=== PATIENT | female | born 1980 | race Caucasian/White ===

== ENCOUNTER 2018-03-22 15:17 | Inpatient (IN) | payer SELFPAY ==
[2018-03-22] MEDS ORDERED: Sodium Chloride 0.9% 2.5 ML Syringe FLUSH PRN (15:39)
[2018-03-22] MEDS ORDERED: Lidocaine 1% 50 ML MDV INJECT PRN (15:39)
[2018-03-22] MEDS ORDERED: Misoprostol 200 MCG Tab PO PRN (15:39)
[2018-03-22] MEDS ORDERED: Butorphanol 1 MG/ML SDV IVPUSH PRN (15:39)
[2018-03-22] MEDS ORDERED: Water For Irrigation,Sterile 1,000 ML Container IRR PRN (15:39)
[2018-03-22] MEDS ORDERED: Nalbuphine 10 MG/1 ML Vial IVPUSH PRN (15:39)
[2018-03-22] MEDS ORDERED: Tranexamic Acid 1,000 MG in Sodium Chloride 0.9% 100 ML IV PRN (15:39)
[2018-03-22] MEDS ORDERED: Sodium Chloride 0.9% 10 ML Syringe FLUSH PRN (15:39)
[2018-03-22] MEDS ORDERED: Carboprost Tromethamine 250 MCG/1 ML Amp IM PRN (15:39)
[2018-03-22] MEDS ORDERED: Methylergonovine 0.2 MG/1 ML Amp IM PRN (15:39)
[2018-03-22] MEDS ORDERED: Lactated Ringers 1,000 ML IV SCH (15:45)
[2018-03-22] MEDS ORDERED: Oxytocin/0.9 % Sodium Chloride 30 UNIT/500 ML BAG IV SCH (15:45)
--- NOTE | 2018-03-22 15:57 | PCM.LDHP ---
L&D History of Present Illness - General Date of Service: 03/22/18 Admit Problem/Dx: Patient Status Order with Admit Dx/Problem 03/22/18 15:39 Patient Status [ADT] Routine Admission Diagnosis/Problem Admission Diagnosis/Problem Source of Information: Patient History Limitations: Reports: No Limitations - History of Present Illness Improves with: Reports: None Worsens with: Reports: None Associated Symptoms: Reports: N - Related Data Allergies/Adverse Reactions: Allergies Allergy/AdvReac Type Severity Reaction Status Date / Time No Known Allergies Allergy Verified 08/31/14 17:14 Past Medical History HEENT History: Reports: Impaired Vision CLINICIAN ONCOLOGY History: Reports: - Past Surgical History HEENT Surgical History: Reports: Oral Surgery H&P Review of Systems - Review of Systems: Review Of Systems: See Below General: Reports: No Symptoms HEENT: Reports: No Symptoms Pulmonary: Reports: No Symptoms Cardiovascular: Reports: No Symptoms Gastrointestinal: Reports: No Symptoms Genitourinary: Reports: No Symptoms Musculoskeletal: Reports: No Symptoms Skin: Reports: No Symptoms Psychiatric: Reports: No Symptoms Neurological: Reports: No Symptoms Hematologic/Lymphatic: Reports: No Symptoms Immunologic: Reports: No Symptoms L&D Exam - Exam Exam: See Below - Vital Signs Weight: 90.718 kg - OB Specific Fundal Height In cm: 38 Contraction Intensity: Moderate to Strong Movement: Active Heart Tones: Present Presentation: Vertex - Hernandez Score Hernandez Score Cervix Position: Anterior Hernandez Score Consistency: Soft Hernandez Score Effacement: >80% Hernandez Score Dilation: > 5 cm Hernandez Score Infant's Station: -1 ,0 Hernandez Score Total: 12 - Exam General: Alert, Oriented HEENT: PERRLA, Conjunctiva Clear, EACs Clear, EOMI, Hearing Intact, Mucosa Moist & [place], Nares Patent, Normal Nasal Septum, Posterior Pharynx Clear, TMs Clear Neck: Supple, Trachea Midline Lungs: Clear to Auscultation, Normal Respiratory Effort Cardiovascular: Regular Rate, Regular Rhythm GI/Abdominal Exam: Normal Bowel Sounds, Soft, Non-Tender, No Organomegaly, No Distention, No Abnormal Bruit, No Mass, Pelvis Stable Rectal Exam: Normal Exam, Normal Rectal Tone Genitourinary: Normal external exam, Normal bimanual exam, Normal speculum exam Back Exam: Normal Inspection, Full Range of Motion Extremities: Normal Inspection, Normal Range of Motion, Non-Tender, No Pedal Edema, Normal Capillary Refill Skin: Warm, Dry, Intact Neurological: Cranial Nerves Intact, Reflexes Equal Bilateral Psychiatric: Alert, Normal Affect, Normal Mood Problem List Initiated/Reviewed/Updated: Yes Orders Last 24hrs: Active Orders 24 hr Category Date Time Status Patient Status [ADT] Routine ADT 03/22/18 15:39 Active Heart Tones [RC] CONTINUOUS Care 03/22/18 15:39 Active Non Stress Test [RC] PER UNIT ROUTINE Care 03/22/18 15:39 Active May Shower [RC] ASDIRECTED Care 03/22/18 15:39 Active Notify Provider [RC] PRN Care 03/22/18 15:39 Active Up ad Connie [RC] ASDIRECTED Care 03/22/18 15:39 Active Vaginal Exam [RC] PRN Care 03/22/18 15:39 Active Vital Signs [RC] PER UNIT ROUTINE Care 03/22/18 15:39 Active CBC W/O DIFF,HEMOGRAM [HEME] Routine Lab 03/22/18 15:39 Ordered TYPE AND SCREEN [BBK] Routine Lab 03/22/18 15:39 Ordered Butorphanol [Stadol] Med 03/22/18 15:39 Active 1 mg IVPUSH Q1H PRN Carboprost Tromethamine [Hemabate DS] Med 03/22/18 15:39 Active 250 mcg IM ASDIRECTED PRN Lactated Ringers [Ringers, Lactated] 1,000 ml Med 03/22/18 15:45 Active IV ASDIRECTED Lidocaine 1% [Xylocaine 1%] Med 03/22/18 15:39 Active 50 ml INJECT ONETIME PRN Methylergonovine [Methergine] Med 03/22/18 15:39 Active 0.2 mg IM ASDIRECTED PRN Nalbuphine [Nubain] Med 03/22/18 15:39 Active 10 mg IVPUSH Q1H PRN Oxytocin/0.9 % Sodium Chloride [Oxytocin 30 Unit/500 ML Med 03/22/18 15:45 Active -NS] 30 unit in 500 ml IV TITRATE Sodium Chloride 0.9% [Saline Flush] Med 03/22/18 15:39 Active 10 ml FLUSH ASDIRECTED PRN Sodium Chloride 0.9% [Saline Flush] Med 03/22/18 15:39 Active 2.5 ml FLUSH ASDIRECTED PRN Tranexamic Acid [Cyklokapron] 1,000 mg Med 03/22/18 15:39 Active Sodium Chloride 0.9% [Normal Saline] 100 ml IV ONETIME Water For Irrigation,Sterile [Sterile Water for Med 03/22/18 15:39 Active Irrigation] 1,000 ml IRR ASDIRECTED PRN miSOPROStol [Cytotec] Med 03/22/18 15:39 Active 200 mcg PO ONETIME PRN Scalp Electrode [WOMSER] Per Unit Routine Oth 03/22/18 15:39 Ordered Peripheral IV Insertion Adult [OM.PC] Routine Oth 03/22/18 15:39 Ordered Resuscitation Status Routine Resus Stat 03/22/18 15:39 Ordered Medication Orders Butorphanol Tartrate (Stadol) 1 mg IVPUSH Q1H PRN PRN Reason: Pain Carboprost Tromethamine (Hemabate Ds) 250 mcg IM ASDIRECTED PRN PRN Reason: Post Hemorrhage Lactated Ringer's (Ringers, Lactated) 1,000 mls @ 150 mls/hr IV ASDIRECTED MELO Oxytocin/Sodium Chloride (Oxytocin 30 Unit/500 Ml-Ns) 30 unit in 500 mls @ 500 mls/hr IV TITRATE MELO Tranexamic Acid 1,000 mg/ (Sodium Chloride) 110 mls @ 660 mls/hr IV ONETIME PRN PRN Reason: Bleeding Lidocaine HCl (Xylocaine 1%) 50 ml INJECT ONETIME PRN PRN Reason: Laceration repair Methylergonovine Maleate (Methergine) 0.2 mg IM ASDIRECTED PRN PRN Reason: Post Hemorrhage Misoprostol (Cytotec) 200 mcg PO ONETIME PRN PRN Reason: Post Hemorrhage Nalbuphine HCl (Nubain) 10 mg IVPUSH Q1H PRN PRN Reason: Pain (severe 7-10) Sodium Chloride (Saline Flush) 10 ml FLUSH ASDIRECTED PRN PRN Reason: Keep Vein Open Sodium Chloride (Saline Flush) 2.5 ml FLUSH ASDIRECTED PRN PRN Reason: Keep Vein Open Sterile Water (Sterile Water For Irrigation) 1,000 ml IRR ASDIRECTED PRN PRN Reason: delivery Assessment/Plan Comment:: Term in active labor anticipating normal spontaneous vaginal delivery
[2018-03-22] MEDS ORDERED: Witch Hazel Medicated Pads 40/Jar TOP PRN (16:25)
[2018-03-22] MEDS ORDERED: Acetaminophen 500 MG Tab PO PRN ×2 (16:25)
[2018-03-22] MEDS ORDERED: Lanolin 100% Cream 7 GM Tube TOP PRN (16:25)
[2018-03-22] MEDS ORDERED: Docusate Sodium 100 MG Cap PO PRN (16:25)
[2018-03-22] MEDS ORDERED: Benzocaine/Menthol 20%-0.5% Spray 78 GM Cannister TOP PRN (16:25)
[2018-03-22] MEDS ORDERED: Bisacodyl 10 MG Supp RECTAL PRN (16:25)
[2018-03-22] MEDS ORDERED: oxyCODONE 5 MG Tab PO PRN (16:25)
[2018-03-22] MEDS ORDERED: Ibuprofen 400 MG Tab PO PRN (16:25)
[2018-03-22] MEDS: Ibuprofen 800 MG Tab PO PRN (16:35)
--- NOTE | 2018-03-23 00:17 | OR ---
SURGEON: Jorden Aguirre MD DATE OF PROCEDURE: Ms. Whitlock is 37. She is para 1-0-0-1. She is followed in the clinic primarily by me. I saw her in the clinic today and I examined her and she was 4 cm, 50- 60% vertex with bulging bag of water. I stripped her membrane. The patient went home and then she came back to Labor and Delivery in active labor. At the time of admission, she was 6 cm with bulging bag of water. She soon progressed to 8 and complete cm within the hour and artificial rupture of the membrane was done by me. There was a meconium tinge. The patient is 42 plus 5 today and then was able to accomplish normal spontaneous vaginal delivery of a female fetus who cried immediately. score and the weight is not available. The placenta delivered spontaneous, complete, and intact. The perineum was intact. There was no need for episiotomy. There was no perineal or labial laceration. ESTIMATED BLOOD LOSS: 250 to 300 mL. heart rate was category 1 through the entire process of short labor. There was no complication in the labor and delivery process. SAMIR / REX /[id number]
[2018-03-23 08:27] VITALS: BP 113/67
--- NOTE | 2018-03-23 10:37 | PCM.DCSUM1 ---
Discharge Summary - Hospital Course Diagnosis: Stroke: No - Discharge Data Discharge Date: 03/23/18 Discharge Disposition: Home, Self-Care 01 Condition: Good - Patient Instructions Diet: Usual Diet as Tolerated Activity: As Tolerated Driving: Do Not Drive Showering/Bathing: July Shower - Discharge Plan Referrals: Meron Moore,[place] [Ordering Only Provider] - Jorden Aguirre MD [Primary Care Provider] - 05/02/18 9:30 am - Discharge Summary/Plan Comment DC Time >30 min.: Yes - General Info Date of Service: 03/23/18 Functional Status: Reports: Pain Controlled - Review of Systems General: Reports: No Symptoms HEENT: Reports: No Symptoms Pulmonary: Reports: No Symptoms Cardiovascular: Reports: No Symptoms Gastrointestinal: Reports: No Symptoms Genitourinary: Reports: No Symptoms Musculoskeletal: Reports: No Symptoms Skin: Reports: No Symptoms Neurological: Reports: No Symptoms Psychiatric: Reports: No Symptoms - Patient Data Vitals - Most Recent: Last Vital Signs Temp 35.9 C 03/23/18 08:00 Pulse 60 03/23/18 08:00 Resp 17 03/23/18 08:00 BP 113/67 03/23/18 08:00 Pulse Ox 99 03/23/18 08:00 Weight - Most Recent: 90.718 kg Lab Results - Last 24 hrs: Laboratory Results - last 24 hr 03/22/18 03/22/18 03/23/18 Range/Units 15:55 15:55 05:48 WBC 9.00 (4.0-11.0) K/uL RBC 4.18 L (4.30-5.90) M/uL Hgb 12.6 10.7 L (12.0-16.0) g/dL Hct 37.5 32.0 L (36.0-46.0) % MCV 89.7 (80.0-98.0) fL MCH 30.1 (27.0-32.0) pg MCHC 33.6 (31.0-37.0) g/dL RDW Std Deviation 42.6 (28.0-62.0) fl RDW Coeff of Bola 13 (11.0-15.0) % Plt Count 266 (150-400) K/uL MPV 10.80 (7.40-12.00) fL Nucleated RBC % 0.0 /100WBC Nucleated RBCs # 0 K/uL Blood Type B POSITIVE Antibody Screen NEGATIVE Med Orders - Current: Current Medications Acetaminophen (Tylenol Extra Strength) 500 mg PO Q4H PRN PRN Reason: Pain Acetaminophen (Tylenol Extra Strength) 1,000 mg PO Q4H PRN PRN Reason: Pain Benzocaine/Menthol (Dermoplast Pain Relief 20%-0.5% [place]) 78 gm TOP ASDIRECTED PRN PRN Reason: Perineal Comfort Measure Bisacodyl (Dulcolax) 10 mg RECTAL ONETIME PRN PRN Reason: Constipation Butorphanol Tartrate (Stadol) 1 mg IVPUSH Q1H PRN PRN Reason: Pain Carboprost Tromethamine (Hemabate Ds) 250 mcg IM ASDIRECTED PRN PRN Reason: Post Hemorrhage Docusate Sodium (Colace) 100 mg PO BID PRN PRN Reason: Constipation Emollient Ointment (Lansinoh Hpa) 0 gm TOP ASDIRECTED PRN PRN Reason: Sore Nipples Lactated Ringer's (Ringers, Lactated) 1,000 mls @ 150 mls/hr IV ASDIRECTED [facility] Last Admin: 03/22/18 15:48 Dose: 150 mls/hr Oxytocin/Sodium Chloride (Oxytocin 30 Unit/500 Ml-Ns) 30 unit in 500 mls @ 500 mls/hr IV TITRATE [facility] Last Admin: 03/22/18 16:08 Dose: 500 mls/hr Tranexamic Acid 1,000 mg/ (Sodium Chloride) 110 mls @ 660 mls/hr IV ONETIME PRN PRN Reason: Bleeding Ibuprofen (Motrin) 400 mg PO Q4H PRN PRN Reason: Pain Ibuprofen (Motrin) 800 mg PO Q6H PRN PRN Reason: Pain Last Admin: 03/22/18 16:35 Dose: 800 mg Lidocaine HCl (Xylocaine 1%) 50 ml INJECT ONETIME PRN PRN Reason: Laceration repair Methylergonovine Maleate (Methergine) 0.2 mg IM ASDIRECTED PRN PRN Reason: Post Hemorrhage Misoprostol (Cytotec) 200 mcg PO ONETIME PRN PRN Reason: Post Hemorrhage Nalbuphine HCl (Nubain) 10 mg IVPUSH Q1H PRN PRN Reason: Pain (severe 7-10) Oxycodone HCl (Oxycodone) 5 mg PO Q2H PRN PRN Reason: Pain Last Admin: 03/22/18 16:34 Dose: 5 mg Sodium Chloride (Saline Flush) 10 ml FLUSH ASDIRECTED PRN PRN Reason: Keep Vein Open Sodium Chloride (Saline Flush) 2.5 ml FLUSH ASDIRECTED PRN PRN Reason: Keep Vein Open Sterile Water (Sterile Water For Irrigation) 1,000 ml IRR ASDIRECTED PRN PRN Reason: delivery Sonya Marks (Tucks) 1 pad TOP ASDIRECTED PRN PRN Reason: comfort care - Exam General: Reports: Alert, Oriented HEENT: Reports: Pupils Equal, Pupils Reactive, EOMI, Mucous Membr. Moist/[place] Neck: Reports: Supple Lungs: Reports: Clear to Auscultation, Normal Respiratory Effort Cardiovascular: Reports: Regular Rate, Regular Rhythm GI/Abdominal Exam: Normal Bowel Sounds, Soft, Non-Tender, No Organomegaly, No Distention, No Abnormal Bruit, No Mass, Pelvis Stable (Female) Exam: Normal External Exam, Normal Speculum Exam, Normal Bimanual Exam Rectal (Female) Exam: Normal Exam, Normal Rectal Tone Back Exam: Reports: Normal Inspection, Full Range of Motion Extremities: Normal Inspection, Normal Range of Motion, Non-Tender, No Pedal Edema, Normal Capillary Refill Skin: Reports: Warm, Dry, Intact Wound/Incisions: Reports: Healing Well Neurological: Reports: No New Focal Deficit Psy/Mental Status: Reports: Alert, Normal Affect, Normal Mood
--- NOTE | 2018-03-23 10:37 | PCM.PNPP ---
- General Info Date of Service: 03/23/18 Functional Status: Reports: Pain Controlled - Review of Systems General: Reports: No Symptoms HEENT: Reports: No Symptoms Pulmonary: Reports: No Symptoms Cardiovascular: Reports: No Symptoms Gastrointestinal: Reports: No Symptoms Genitourinary: Reports: No Symptoms Musculoskeletal: Reports: No Symptoms Skin: Reports: No Symptoms Neurological: Reports: No Symptoms Psychiatric: Reports: No Symptoms - General Info Date of Service: 03/23/18 - Patient Data Vital Signs - Most Recent: Last Vital Signs Temp 35.9 C 03/23/18 08:00 Pulse 60 03/23/18 08:00 Resp 17 03/23/18 08:00 BP 113/67 03/23/18 08:00 Pulse Ox 99 03/23/18 08:00 Weight - Most Recent: 90.718 kg Lab Results - Last 24 Hours: Laboratory Results - last 24 hr 03/22/18 03/22/18 03/23/18 Range/Units 15:55 15:55 05:48 WBC 9.00 (4.0-11.0) K/uL RBC 4.18 L (4.30-5.90) M/uL Hgb 12.6 10.7 L (12.0-16.0) g/dL Hct 37.5 32.0 L (36.0-46.0) % MCV 89.7 (80.0-98.0) fL MCH 30.1 (27.0-32.0) pg MCHC 33.6 (31.0-37.0) g/dL RDW Std Deviation 42.6 (28.0-62.0) fl RDW Coeff of Bola 13 (11.0-15.0) % Plt Count 266 (150-400) K/uL MPV 10.80 (7.40-12.00) fL Nucleated RBC % 0.0 /100WBC Nucleated RBCs # 0 K/uL Blood Type B POSITIVE Antibody Screen NEGATIVE Med Orders - Current: Current Medications Acetaminophen (Tylenol Extra Strength) 500 mg PO Q4H PRN PRN Reason: Pain Acetaminophen (Tylenol Extra Strength) 1,000 mg PO Q4H PRN PRN Reason: Pain Benzocaine/Menthol (Dermoplast Pain Relief 20%-0.5% [place]) 78 gm TOP ASDIRECTED PRN PRN Reason: Perineal Comfort Measure Bisacodyl (Dulcolax) 10 mg RECTAL ONETIME PRN PRN Reason: Constipation Butorphanol Tartrate (Stadol) 1 mg IVPUSH Q1H PRN PRN Reason: Pain Carboprost Tromethamine (Hemabate Ds) 250 mcg IM ASDIRECTED PRN PRN Reason: Post Hemorrhage Docusate Sodium (Colace) 100 mg PO BID PRN PRN Reason: Constipation Emollient Ointment (Lansinoh Hpa) 0 gm TOP ASDIRECTED PRN PRN Reason: Sore Nipples Lactated Ringer's (Ringers, Lactated) 1,000 mls @ 150 mls/hr IV ASDIRECTED MELO Last Admin: 03/22/18 15:48 Dose: 150 mls/hr Oxytocin/Sodium Chloride (Oxytocin 30 Unit/500 Ml-Ns) 30 unit in 500 mls @ 500 mls/hr IV TITRATE [facility] Last Admin: 03/22/18 16:08 Dose: 500 mls/hr Tranexamic Acid 1,000 mg/ (Sodium Chloride) 110 mls @ 660 mls/hr IV ONETIME PRN PRN Reason: Bleeding Ibuprofen (Motrin) 400 mg PO Q4H PRN PRN Reason: Pain Ibuprofen (Motrin) 800 mg PO Q6H PRN PRN Reason: Pain Last Admin: 03/22/18 16:35 Dose: 800 mg Lidocaine HCl (Xylocaine 1%) 50 ml INJECT ONETIME PRN PRN Reason: Laceration repair Methylergonovine Maleate (Methergine) 0.2 mg IM ASDIRECTED PRN PRN Reason: Post Hemorrhage Misoprostol (Cytotec) 200 mcg PO ONETIME PRN PRN Reason: Post Hemorrhage Nalbuphine HCl (Nubain) 10 mg IVPUSH Q1H PRN PRN Reason: Pain (severe 7-10) Oxycodone HCl (Oxycodone) 5 mg PO Q2H PRN PRN Reason: Pain Last Admin: 03/22/18 16:34 Dose: 5 mg Sodium Chloride (Saline Flush) 10 ml FLUSH ASDIRECTED PRN PRN Reason: Keep Vein Open Sodium Chloride (Saline Flush) 2.5 ml FLUSH ASDIRECTED PRN PRN Reason: Keep Vein Open Sterile Water (Sterile Water For Irrigation) 1,000 ml IRR ASDIRECTED PRN PRN Reason: delivery Sonya Marks (Abiodun) 1 pad TOP ASDIRECTED PRN PRN Reason: comfort care - Interaction Disposition, : [place] in Room with Family Infant Interaction: Holding Infant Feeding: Bottle Fed Infant Support Person: Sister, Significant Other - Recovery Exam Fundal Tone: Firm Fundal Level: At Umbilicus Fundal Placement: Midline Lochia Amount: Small Lochia Color: Rubra/Red Perineum Description: Intact, Minimal Bruising/Swelling Episiotomy/Laceration: None Bladder Status: Voiding Urinary Elimination: Voided - Exam General: Alert, Oriented HEENT: Pupils Equal Neck: Supple Lungs: Clear to Auscultation, Normal Respiratory Effort Cardiovascular: Regular Rate, Regular Rhythm GI/Abdominal Exam: Normal Bowel Sounds, Soft, Non-Tender, No Organomegaly, No Distention, No Abnormal Bruit, No Mass, Pelvis Stable Extremities: Normal Inspection, Normal Range of Motion, Non-Tender, No Pedal Edema, Normal Capillary Refill Skin: Warm, Dry, Intact Wound/Incisions: Healing Well Neurological: No New Focal Deficit Psy/Mental Status: Alert, Normal Affect, Normal Mood - Problem List Review Problem List Initiated/Reviewed/Updated: Yes - My Orders Last 24 Hours: My Active Orders 03/22/18 15:39 Heart Tones [RC] CONTINUOUS May Shower [RC] ASDIRECTED Up ad Connie [RC] ASDIRECTED Butorphanol [Stadol] 1 mg IVPUSH Q1H PRN Carboprost Tromethamine [Hemabate DS] 250 mcg IM ASDIRECTED PRN Lidocaine 1% [Xylocaine 1%] 50 ml INJECT ONETIME PRN Methylergonovine [Methergine] 0.2 mg IM ASDIRECTED PRN Nalbuphine [Nubain] 10 mg IVPUSH Q1H PRN Sodium Chloride 0.9% [Saline Flush] 10 ml FLUSH ASDIRECTED PRN Sodium Chloride 0.9% [Saline Flush] 2.5 ml FLUSH ASDIRECTED PRN Tranexamic Acid [Cyklokapron] 1,000 mg Sodium Chloride 0.9% [Normal Saline] 100 ml IV ONETIME Water For Irrigation,Sterile [Sterile Water for Irrigation] 1,000 ml IRR ASDIRECTED PRN miSOPROStol [Cytotec] 200 mcg PO ONETIME PRN Scalp Electrode [WOMSER] Per Unit Routine Peripheral IV Insertion Adult [OM.PC] Routine Resuscitation Status Routine 03/22/18 15:45 Lactated Ringers [Ringers, Lactated] 1,000 ml IV ASDIRECTED Oxytocin/0.9 % Sodium Chloride [Oxytocin 30 Unit/500 ML-NS] 30 unit in 500 ml IV TITRATE 03/22/18 16:25 Patient Status [ADT] Routine Vital Signs [RC] PER UNIT ROUTINE Acetaminophen [Tylenol Extra Strength] 1,000 mg PO Q4H PRN Acetaminophen [Tylenol Extra Strength] 500 mg PO Q4H PRN Benzocaine/Menthol [Dermoplast Pain Relief 20%-0.5% [place]] 78 gm TOP ASDIRECTED PRN Bisacodyl [Dulcolax] 10 mg RECTAL ONETIME PRN Docusate Sodium [Colace] 100 mg PO BID PRN Ibuprofen [Motrin] 400 mg PO Q4H PRN Ibuprofen [Motrin] 800 mg PO Q6H PRN Lanolin [Lansinoh HPA] See Dose Instructions TOP ASDIRECTED PRN Witch [place] [Tucks] 1 pad TOP ASDIRECTED PRN oxyCODONE 5 mg PO Q2H PRN Assess Lochia [WOMSER] Per Unit Routine Assess Uterine Involution [WOMSER] Per Unit Routine Peripheral IV Discontinue [OM.PC] Routine 03/23/18 Breakfast Regular Diet [DIET] - Assessment Assessment:: Status post normal spontaneous vaginal delivery doing well we will send the patient home with a post vaginal delivery instruction - Plan Plan:: Term in active labor anticipating normal spontaneous vaginal delivery
[2018-03-23] MEDS: Ibuprofen 800 MG Tab PO PRN (16:45)
== END 2018-03-23 18:40 | disposition home or self-care (01) | DRG 807 ==
LOC: MW.OBCHECK 15:17 → MW.OB 15:18 → MW.OBCHECK 15:39 → OBSVTOIN 16:07
PROVIDERS: ADMIT Obstetrics & Gynecology; ATTEND Obstetrics & Gynecology
PROC: 10E0XZZ Delivery of Products of Conception, External Approach (ICD-10-PCS; principal; 2018-03-22)
PROC: 10907ZC Drainage of Amniotic Fluid, Therapeutic from Products of Conception, Via Natural or Artificial Opening (ICD-10-PCS; 2018-03-22)
DX: O80 Encounter for full-term uncomplicated delivery (principal); Z37.0 Single live birth; Z3A.40 40 weeks gestation of pregnancy
CPT/HCPCS: 36415; 59409; 85014; 85018; 85027; 86850; 86900; 86901; A9270-GY; J2590; J7120

== ENCOUNTER 2023-11-05 08:03 | Day surgery (SDC) | payer MEDICAID ==
[2023-11-05] MEDS: Lactated Ringers 1,000 ML IV SCH (08:45)
[2023-11-05] MEDS ORDERED: Lidocaine 2% 5 ML SDV ONE (10:16)
[2023-11-05] MEDS ORDERED: Propofol 200 MG/20 ML SDV ONE (10:16)
[2023-11-05 11:21] VITALS: BP 94/59
[2023-11-05 12:59] VITALS: PULSE 49
== END 2023-11-05 11:40 | disposition home or self-care (01) ==
LOC: MW.SDS 08:03
PROVIDERS: ATTEND Surgery
DX: K52.9 Noninfective gastroenteritis and colitis, unspecified (principal); K63.89 Other specified diseases of intestine; K59.09 Other constipation
CPT/HCPCS: 45380; 81025; J2704; J7120; 00811; J3490

== ENCOUNTER 2024-12-21 07:29 | Emergency (ER) | payer MEDICAID ==
[2024-12-21] MEDS ORDERED: Sodium Chloride 0.9% 2.5 ML Syringe FLUSH PRN (07:38)
[2024-12-21] MEDS ORDERED: Sodium Chloride 0.9% 10 ML Syringe FLUSH PRN (07:38)
[2024-12-21 07:57] LABS: BASOPHILS ABSOLUTE AUTO 0.05 K/uL (0.00-0.20); BASOPHILS PERCENT AUTO 1.3 % (0.0-1.0); EOSINOPHILS ABSOLUTE AUTO 0.06 K/uL (0.00-0.45); EOSINOPHILS PERCENT AUTO 1.5 % (0.0-6.0); IMMATURE GRAN ABSOLUTE AUTO 0.01 K/uL (0.00-0.05); IMMATURE GRAN PERCENT AUTO 0.3 % (0.0-0.4); LYMPHOCYTES ABSOLUTE AUTO 1.38 K/uL (1.00-4.80); LYMPHOCYTES PERCENT AUTO 35.3 % (24.0-44.0); MEAN PLATELET VOLUME 9.7 fL (9.4-12.3); MONOCYTES ABSOLUTE AUTO 0.27 K/uL (0.00-0.80); MONOCYTES PERCENT AUTO 6.9 % (0.0-8.0); NEUTROPHILS ABSOLUTE AUTO 2.14 K/uL (1.80-7.70); NEUTROPHILS PERCENT AUTO 54.7 % (41.0-71.0); NRBC ABSOLUTE 0.00 K/uL (0.00-0.02); NRBC PERCENT 0.0 /100WBC (0.0-0.2); PLATELET COUNT,PLT 268 K/uL (150-400); RED BLOOD CELL COUNT 4.01 M/uL (4.10-5.30); WHITE BLOOD CELL COUNT,WBC 3.91 K/uL (3.9-11.3)
[2024-12-21 08:31] LABS: A/G RATIO 1.0 (0.9-1.6); ALANINE AMINOTRANSFERASE,ALT 20.0 IU/L (14-63); ASPARTATE AMNIOTRANSFERASE,AST 18.0 IU/L (15-37); BILIRUBIN TOTAL 0.7 mg/dL (0.2-1.0); BLOOD UREA NITROGEN,BUN 14.0 mg/dL (7.0-18.0); CARBON DIOXIDE,CO2 21.7 mmol/L (21.0-32.0); CHLORIDE,CL 105.0 mmol/L (98-107); CREATINE KINASE,CK 72.0 U/L (26-308); CREATININE 1.0 mg/dL (0.6-1.0); EST CRCL DRUG DOSING (CG) 68.61 mL/min; GLUCOSE RANDOM 76.0 mg/dL (74-106); POTASSIUM,K 3.5 mmol/L (3.5-5.1); PROTEIN TOTAL,TP 7.0 g/dL (6.4-8.2); SODIUM,NA 141.0 mmol/L (136-145); TSH ULTRASENSITIVE 3.53 uIU/mL (0.36-3.74)
[2024-12-21 08:32] LABS: ESTIMATED GFR 72.0 mL/min (>60)
[2024-12-21] MEDS: Magnesium Sulfate 2 GM/50 mL 2 GM in Premix Bag 1 BAG IV ONE (08:50)
[2024-12-21 11:26] LABS: APPEARANCE,URINE CLEAR; GLUCOSE,URINE NEGATIVE (NEGATIVE); OCCULT BLOOD,URINE NEGATIVE (NEGATIVE)
[2024-12-21] MEDS ORDERED: Heparin Sodium/0.45% NaCl 25,000 UNITS/250 ML BAG IV SCH (12:30)
[2024-12-21] MEDS: Heparin Sodium 5,000 Units/ML Vial IVPUSH ONE (12:41)
[2024-12-21] MEDS: Heparin Sodium/0.45% NaCl 25,000 UNITS/250 ML BAG IV SCH (12:41)
[2024-12-21 14:31] VITALS: BP 106/52; PULSE 80
== END 2024-12-21 14:56 ==
LOC: MW.ED 07:29
DX: I21.4 Non-ST elevation (NSTEMI) myocardial infarction (principal); I47.10 Supraventricular tachycardia, unspecified; Z79.899 Other long term (current) drug therapy
CPT/HCPCS: 36415; 70450; 71045; 80053; 80307; 81003; 82330; 82550; 83735; 84443; 84484; 84703; 85025; 85379; 85730; 93005; 96365; 96366; 96367; 99285; A9270; J1644; J3475; J7040; 93010

== ENCOUNTER 2025-01-04 14:42 | Emergency (ER) | payer MEDICAID ==
[2025-01-04] MEDS ORDERED: Sodium Chloride 0.9% 2.5 ML Syringe FLUSH PRN (15:57)
[2025-01-04] MEDS ORDERED: Sodium Chloride 0.9% 10 ML Syringe FLUSH PRN (15:57)
[2025-01-04 16:05] LABS: APPEARANCE,URINE CLEAR; GLUCOSE,URINE NEGATIVE (NEGATIVE); OCCULT BLOOD,URINE NEGATIVE (NEGATIVE)
[2025-01-04 16:40] LABS: BASOPHILS ABSOLUTE AUTO 0.06 K/uL (0.00-0.20); BASOPHILS PERCENT AUTO 0.8 % (0.0-1.0); EOSINOPHILS ABSOLUTE AUTO 0.04 K/uL (0.00-0.45); EOSINOPHILS PERCENT AUTO 0.5 % (0.0-6.0); IMMATURE GRAN ABSOLUTE AUTO 0.01 K/uL (0.00-0.05); IMMATURE GRAN PERCENT AUTO 0.1 % (0.0-0.4); LYMPHOCYTES ABSOLUTE AUTO 1.28 K/uL (1.00-4.80); LYMPHOCYTES PERCENT AUTO 16.9 % (24.0-44.0); MEAN PLATELET VOLUME 9.4 fL (9.4-12.3); MONOCYTES ABSOLUTE AUTO 0.42 K/uL (0.00-0.80); MONOCYTES PERCENT AUTO 5.5 % (0.0-8.0); NEUTROPHILS ABSOLUTE AUTO 5.76 K/uL (1.80-7.70); NEUTROPHILS PERCENT AUTO 76.2 % (41.0-71.0); NRBC ABSOLUTE 0.00 K/uL (0.00-0.02); NRBC PERCENT 0.0 /100WBC (0.0-0.2); PLATELET COUNT,PLT 307 K/uL (150-400); RED BLOOD CELL COUNT 4.20 M/uL (4.10-5.30); WHITE BLOOD CELL COUNT,WBC 7.57 K/uL (3.9-11.3)
[2025-01-04 17:02] LABS: A/G RATIO 1.1 (0.9-1.6); ALANINE AMINOTRANSFERASE,ALT 22.0 IU/L (14-63); ASPARTATE AMNIOTRANSFERASE,AST 18.0 IU/L (15-37); BILIRUBIN TOTAL 0.5 mg/dL (0.2-1.0); BLOOD UREA NITROGEN,BUN 10.0 mg/dL (7.0-18.0); CARBON DIOXIDE,CO2 26.5 mmol/L (21.0-32.0); CHLORIDE,CL 105.0 mmol/L (98-107); CREATININE 0.7 mg/dL (0.6-1.0); EST CRCL DRUG DOSING (CG) 98.01 mL/min; GLUCOSE RANDOM 85.0 mg/dL (74-106); POTASSIUM,K 3.8 mmol/L (3.5-5.1); PROTEIN TOTAL,TP 7.7 g/dL (6.4-8.2); SODIUM,NA 141.0 mmol/L (136-145)
[2025-01-04 17:05] LABS: ESTIMATED GFR 111.0 mL/min (>60)
[2025-01-04 18:38] VITALS: BP 122/72; PULSE 68
== END 2025-01-04 18:38 | disposition home or self-care (01) ==
LOC: MW.ED 14:42
DX: R25.9 Unspecified abnormal involuntary movements (principal); Z75.3 Unavailability and inaccessibility of health-care facilities; Z79.899 Other long term (current) drug therapy
CPT/HCPCS: 36415; 70450; 71045; 80053; 81003; 82947; 83690; 83735; 85025; 96360; 99284; A9270; J7030; 99283

== ENCOUNTER 2025-01-15 17:53 | Emergency (ER) | payer MEDICAID ==
[2025-01-15] MEDS ORDERED: Sodium Chloride 0.9% 10 ML Syringe FLUSH PRN (18:09)
[2025-01-15] MEDS ORDERED: Sodium Chloride 0.9% 2.5 ML Syringe FLUSH PRN (18:09)
[2025-01-15 18:30] LABS: BASOPHILS ABSOLUTE AUTO 0.07 K/uL (0.00-0.20); BASOPHILS PERCENT AUTO 1.1 % (0.0-1.0); EOSINOPHILS ABSOLUTE AUTO 0.07 K/uL (0.00-0.45); EOSINOPHILS PERCENT AUTO 1.1 % (0.0-6.0); IMMATURE GRAN ABSOLUTE AUTO 0.01 K/uL (0.00-0.05); IMMATURE GRAN PERCENT AUTO 0.2 % (0.0-0.4); LYMPHOCYTES ABSOLUTE AUTO 2.43 K/uL (1.00-4.80); LYMPHOCYTES PERCENT AUTO 39.6 % (24.0-44.0); MEAN PLATELET VOLUME 9.8 fL (9.4-12.3); MONOCYTES ABSOLUTE AUTO 0.34 K/uL (0.00-0.80); MONOCYTES PERCENT AUTO 5.5 % (0.0-8.0); NEUTROPHILS ABSOLUTE AUTO 3.21 K/uL (1.80-7.70); NEUTROPHILS PERCENT AUTO 52.5 % (41.0-71.0); NRBC ABSOLUTE 0.00 K/uL (0.00-0.02); NRBC PERCENT 0.0 /100WBC (0.0-0.2); PLATELET COUNT,PLT 327 K/uL (150-400); RED BLOOD CELL COUNT 4.34 M/uL (4.10-5.30); WHITE BLOOD CELL COUNT,WBC 6.13 K/uL (3.9-11.3)
[2025-01-15] MEDS: LORazepam 2 MG/ML SDV IVPUSH ONE (18:39)
[2025-01-15 18:42] LABS: INR 1.0 (0.86-1.11)
[2025-01-15 18:59] LABS: A/G RATIO 1.1 (0.9-1.6); ALANINE AMINOTRANSFERASE,ALT 21.0 IU/L (14-63); ASPARTATE AMNIOTRANSFERASE,AST 16.0 IU/L (15-37); BILIRUBIN TOTAL 0.4 mg/dL (0.2-1.0); BLOOD UREA NITROGEN,BUN 13.0 mg/dL (7.0-18.0); CARBON DIOXIDE,CO2 22.6 mmol/L (21.0-32.0); CHLORIDE,CL 104.0 mmol/L (98-107); CREATININE 0.9 mg/dL (0.6-1.0); EST CRCL DRUG DOSING (CG) 76.23 mL/min; GLUCOSE RANDOM 141.0 mg/dL (74-106); POTASSIUM,K 3.1 mmol/L (3.5-5.1); PRO B-TYPE NATRIUR PEPT,BNPPRO 28.0 pg/mL (0-125); PROTEIN TOTAL,TP 7.8 g/dL (6.4-8.2); SODIUM,NA 140.0 mmol/L (136-145)
[2025-01-15 19:00] LABS: ESTIMATED GFR 82.0 mL/min (>60)
[2025-01-15 21:50] VITALS: BP 100/59; PULSE 66
== END 2025-01-15 21:50 | disposition home or self-care (01) ==
LOC: MW.ED 17:53
DX: R07.89 Other chest pain (principal)
CPT/HCPCS: 36415; 71046; 80053; 83735; 83880; 84484; 84703; 85025; 85610; 93005; 96374; 99285; J2060; J7030; 99283

== ENCOUNTER 2025-02-08 19:42 | Emergency (ER) | payer MEDICAID ==
[2025-02-08 20:26] LABS: BASOPHILS ABSOLUTE AUTO 0.06 K/uL (0.00-0.20); BASOPHILS PERCENT AUTO 1.1 % (0.0-1.0); EOSINOPHILS ABSOLUTE AUTO 0.06 K/uL (0.00-0.45); EOSINOPHILS PERCENT AUTO 1.1 % (0.0-6.0); IMMATURE GRAN ABSOLUTE AUTO 0.01 K/uL (0.00-0.05); IMMATURE GRAN PERCENT AUTO 0.2 % (0.0-0.4); LYMPHOCYTES ABSOLUTE AUTO 1.98 K/uL (1.00-4.80); LYMPHOCYTES PERCENT AUTO 37.3 % (24.0-44.0); MEAN PLATELET VOLUME 9.7 fL (9.4-12.3); MONOCYTES ABSOLUTE AUTO 0.47 K/uL (0.00-0.80); MONOCYTES PERCENT AUTO 8.9 % (0.0-8.0); NEUTROPHILS ABSOLUTE AUTO 2.73 K/uL (1.80-7.70); NEUTROPHILS PERCENT AUTO 51.4 % (41.0-71.0); NRBC ABSOLUTE 0.00 K/uL (0.00-0.02); NRBC PERCENT 0.0 /100WBC (0.0-0.2); PLATELET COUNT,PLT 278 K/uL (150-400); RED BLOOD CELL COUNT 4.06 M/uL (4.10-5.30); WHITE BLOOD CELL COUNT,WBC 5.31 K/uL (3.9-11.3)
[2025-02-08 20:39] LABS: INR 0.97 (0.86-1.11)
[2025-02-08 21:03] LABS: A/G RATIO 1.0 (0.9-1.6); ALANINE AMINOTRANSFERASE,ALT 35.0 IU/L (14-63); ASPARTATE AMNIOTRANSFERASE,AST 19.0 IU/L (15-37); BILIRUBIN TOTAL 0.3 mg/dL (0.2-1.0); BLOOD UREA NITROGEN,BUN 18.0 mg/dL (7.0-18.0); CARBON DIOXIDE,CO2 25.6 mmol/L (21.0-32.0); CHLORIDE,CL 105.0 mmol/L (98-107); CREATININE 0.8 mg/dL (0.6-1.0); EST CRCL DRUG DOSING (CG) 85.76 mL/min; ESTIMATED GFR 94.0 mL/min (>60); GLUCOSE RANDOM 83.0 mg/dL (74-106); POTASSIUM,K 4.1 mmol/L (3.5-5.1); PRO B-TYPE NATRIUR PEPT,BNPPRO 18.0 pg/mL (0-125); PROTEIN TOTAL,TP 7.3 g/dL (6.4-8.2); SODIUM,NA 140.0 mmol/L (136-145)
[2025-02-08 22:48] VITALS: BP 101/68; PULSE 69
== END 2025-02-08 21:50 | disposition home or self-care (01) ==
LOC: MW.ED 19:42
DX: R07.89 Other chest pain (principal); R06.02 Shortness of breath; F41.0 Panic disorder [episodic paroxysmal anxiety]; Z86.79 Personal history of other diseases of the circulatory system; Z82.49 Family history of ischemic heart disease and other diseases of the circulatory system
CPT/HCPCS: 36415; 71045; 71045-26; 80053; 80307; 83690; 83735; 83880; 84484; 84703; 85025; 85610; 87428-QW; 93005; 93010; 99284; 99285; A9270-GY

== ENCOUNTER 2025-02-14 03:46 | Emergency (ER) | payer MEDICAID ==
[2025-02-14] MEDS ORDERED: Sodium Chloride 0.9% 10 ML Syringe FLUSH PRN (03:56)
[2025-02-14] MEDS ORDERED: Sodium Chloride 0.9% 2.5 ML Syringe FLUSH PRN (03:56)
[2025-02-14] MEDS: LORazepam 2 MG/ML SDV IVPUSH ONE (04:07)
[2025-02-14 04:13] LABS: BASOPHILS ABSOLUTE AUTO 0.05 K/uL (0.00-0.20); BASOPHILS PERCENT AUTO 1.2 % (0.0-1.0); EOSINOPHILS ABSOLUTE AUTO 0.08 K/uL (0.00-0.45); EOSINOPHILS PERCENT AUTO 2.0 % (0.0-6.0); IMMATURE GRAN ABSOLUTE AUTO 0.00 K/uL (0.00-0.05); IMMATURE GRAN PERCENT AUTO 0.0 % (0.0-0.4); LYMPHOCYTES ABSOLUTE AUTO 1.51 K/uL (1.00-4.80); LYMPHOCYTES PERCENT AUTO 37.3 % (24.0-44.0); MEAN PLATELET VOLUME 9.8 fL (9.4-12.3); MONOCYTES ABSOLUTE AUTO 0.40 K/uL (0.00-0.80); MONOCYTES PERCENT AUTO 9.9 % (0.0-8.0); NEUTROPHILS ABSOLUTE AUTO 2.01 K/uL (1.80-7.70); NEUTROPHILS PERCENT AUTO 49.6 % (41.0-71.0); NRBC ABSOLUTE 0.00 K/uL (0.00-0.02); NRBC PERCENT 0.0 /100WBC (0.0-0.2); PLATELET COUNT,PLT 337 K/uL (150-400); RED BLOOD CELL COUNT 4.27 M/uL (4.10-5.30); WHITE BLOOD CELL COUNT,WBC 4.05 K/uL (3.9-11.3)
[2025-02-14 04:54] LABS: BLOOD UREA NITROGEN,BUN 12.0 mg/dL (7.0-18.0); CARBON DIOXIDE,CO2 26.8 mmol/L (21.0-32.0); CHLORIDE,CL 103.0 mmol/L (98-107); CREATININE 0.9 mg/dL (0.6-1.0); EST CRCL DRUG DOSING (CG) 73.27 mL/min; GLUCOSE RANDOM 95.0 mg/dL (74-106); POTASSIUM,K 3.9 mmol/L (3.5-5.1); SODIUM,NA 139.0 mmol/L (136-145)
[2025-02-14 04:57] LABS: ESTIMATED GFR 82.0 mL/min (>60)
[2025-02-14 05:18] VITALS: BP 101/59; PULSE 60
== END 2025-02-14 05:18 | disposition home or self-care (01) ==
LOC: MW.ED 03:46
DX: R07.9 Chest pain, unspecified (principal); R06.02 Shortness of breath; Z79.899 Other long term (current) drug therapy
CPT/HCPCS: 36415; 71045; 80048; 84484; 84703; 85025; 93005; 96374; 99285; J2060; 93010; 99284